=== PATIENT | female | born 1975 | race Caucasian/White ===

== ENCOUNTER 2022-06-19 08:24 | Emergency (ER) | payer OTHER ==
[~2022-06-19] VITALS: Ht 167.6 cm; Wt 59.0 kg
[2022-06-19 08:31] VITALS: BP_SYST 120
--- NOTE | 2022-06-19 08:40 | NUR ---
Pt presents to the ER BIB family from home. CC Lower back pain. 07/16 Pt states was on the leg press last evening when body slipped injuring lower back region. Pain radiates to right leg extremity. Pt denies NV, respirations even and unlabored. No Past Med Hx.
--- NOTE | 2022-06-19 08:47 | NUR ---
ER at bedside examining patient.
[2022-06-19] MEDS ORDERED: IBUPROFEN 600 MG TABLET PO ONE (09:00)
[2022-06-19] MEDS ORDERED: HYDROcodone/ACETAMIN 5-325 MG TAB (NORCO/ VICODIN) PO ONE (09:00)
[2022-06-19] MEDS ORDERED: NAPR-688 PO (09:06)
[2022-06-19] MEDS ORDERED: SOM350 PO (09:06)
[2022-06-19] MEDS ORDERED: HYDR-3917 PO (09:06)
--- NOTE | 2022-06-19 09:31 | NUR ---
returns from Radiology.pt notes pain medicine has been effective, 03/16.
[2022-06-19 09:37] VITALS: BP_SYST 128
--- NOTE | 2022-06-19 09:43 | NUR ---
dPatient given written and verbal discharge instructions and verbalizes understanding. ER MD discussed with patient the results and treatment provided. Patient in stable condition. ID arm band removed. Rx of [place], [place], and Naproxen given. Patient educated on pain management and to follow up with PMD. Opportunity for questions provided and answered. Medication side effect fact sheet provided.
== END 2022-06-19 09:37 | disposition home or self-care (01) ==
LOC: SED 08:24
DX: S39.012A Strain of muscle, fascia and tendon of lower back, initial encounter (principal); Z79.899 Other long term (current) drug therapy; X50.0XXA Overexertion from strenuous movement or load, initial encounter; Y93.B9 Activity, other involving muscle strengthening exercises; Y92.89 Other specified places as the place of occurrence of the external cause; Y99.8 Other external cause status
CPT/HCPCS: 72100-TC; 99283